=== PATIENT | female | born 2000 | race African-American/Black ===

== ENCOUNTER → 2020-12-10 | Outpatient (CLI) | payer OTHER ==
[2020-12-10 16:10] LABS: BASO % 0.4 % (0.0-1.0); EOS % 0.1 % (0.0-3.0); HEMATOCRIT 42.6 % (36.0-47.0); HEMOGLOBIN 13.3 g/dl (12.0-15.5); LYMPH # 1.3 10^3/uL (1.5-5.0); LYMPH % 17.4 % (24.0-44.0); MEAN CORPUSCULAR HEMOGLOBIN 27.4 pg (27.0-33.0); MEAN CORPUSCULAR HGB CONC 31.2 g/dl (32.0-36.5); MEAN CORPUSCULAR VOLUME 87.8 fl (80.0-96.0); MONO # 0.3 10^3/uL (0.0-0.8); MONO % 4.4 % (2.0-8.0); NEUTROPHILS # 5.8 10^3/uL (1.5-8.5); NEUTROPHILS % 77.4 % (36.0-66.0); PLATELET COUNT, AUTOMATED 349 10^3/uL (150-450); RED BLOOD COUNT 4.85 10^6/uL (4.00-5.40); WHITE BLOOD COUNT 7.5 10^3/uL (4.0-10.0)
[2020-12-10 16:44] LABS: ALBUMIN 4.3 GM/DL (3.2-5.2); ALT/SGPT 23 U/L (12-78); BILIRUBIN,TOTAL 0.5 MG/DL (0.2-1.0); BLOOD UREA NITROGEN 9 MG/DL (7-18); CALCIUM LEVEL 9.1 MG/DL (8.5-10.1); CARBON DIOXIDE LEVEL 27 MEQ/L (21-32); CHLORIDE LEVEL 105 MEQ/L (98-107); CREATININE FOR GFR 0.95 MG/DL (0.55-1.30); FREE T4 1.21 NG/DL (0.78-1.33); GLUCOSE, FASTING 85 MG/DL (70-100); POTASSIUM SERUM 4.2 MEQ/L (3.5-5.1); SODIUM LEVEL 138 MEQ/L (136-145); THYROID STIMULATING HORMONE 0.502 uIU/ML (0.463-3.98); TOTAL PROTEIN 7.6 GM/DL (6.4-8.2)
== END ==
LOC: M WUC 11:15
PROVIDERS: ATTEND Physician Assistant
DX: R42 Dizziness and giddiness (principal); R11.2 Nausea with vomiting, unspecified

== ENCOUNTER 2021-03-30 18:05 | Emergency (ER) | payer OTHER ==
[~2021-03-30] VITALS: Ht 160 cm; Wt 62.9 kg
[2021-03-30 18:05] VITALS: BP 133/72
[2021-03-30] MEDS ORDERED: VALA500T5 (18:35)
[2021-03-30] MEDS ORDERED: MUCI600T31 (18:35)
[2021-03-30] MEDS ORDERED: [UNRECOGNIZED DRUG - CODE] (18:35)
[2021-03-30] MEDS ORDERED: ACET1TAB55 (18:35)
[2021-03-30] MEDS ORDERED: [UNRECOGNIZED DRUG - CODE] (18:35)
[2021-03-30 19:27] LABS: BASO % 0.4 % (0.0-1.0); EOS # 0.2 10^3/uL (0.0-0.5); EOS % 2.4 % (0.0-3.0); HEMATOCRIT 38.3 % (36.0-47.0); LYMPH # 2.1 10^3/uL (1.5-5.0); LYMPH % 29.8 % (24.0-44.0); MEAN CORPUSCULAR HEMOGLOBIN 26.8 pg (27.0-33.0); MEAN CORPUSCULAR HGB CONC 31.3 g/dl (32.0-36.5); MEAN CORPUSCULAR VOLUME 85.5 fl (80.0-96.0); MONO # 0.5 10^3/uL (0.0-0.8); MONO % 6.9 % (2.0-8.0); NEUTROPHILS # 4.2 10^3/uL (1.5-8.5); NEUTROPHILS % 60.2 % (36.0-66.0); PLATELET COUNT, AUTOMATED 312 10^3/uL (150-450); RED BLOOD COUNT 4.48 10^6/uL (4.00-5.40)
[2021-03-30 19:39] LABS: ALBUMIN 3.3 GM/DL (3.2-5.2); ALT/SGPT 17 U/L (12-78); BILIRUBIN,DIRECT 0.1 MG/DL (0.0-0.2); BILIRUBIN,TOTAL 0.3 MG/DL (0.2-1.0); BLOOD UREA NITROGEN 13 MG/DL (7-18); CALCIUM LEVEL 8.8 MG/DL (8.5-10.1); CARBON DIOXIDE LEVEL 30 MEQ/L (21-32); CHLORIDE LEVEL 108 MEQ/L (98-107); CREATININE FOR GFR 0.81 MG/DL (0.55-1.30); GLUCOSE, FASTING 78 MG/DL (70-100); LIPASE 117 U/L (73-393); POTASSIUM SERUM 4.1 MEQ/L (3.5-5.1); SODIUM LEVEL 142 MEQ/L (136-145); TOTAL PROTEIN 6.9 GM/DL (6.4-8.2)
--- NOTE | 2021-03-30 20:15 | REP ---
INDICATION: RUQ pain. COMPARISON: None. TECHNIQUE: Right upper quadrant sonography FINDINGS: Scanning through the right upper quadrant of the abdomen demonstrates a normal sized, thin-walled gallbladder without evidence of stone or polyp. Common bile duct is normal measuring 0.6 cm in greatest diameter. No focal liver lesion is seen. Liver size is normal. No pancreatic abnormality is observed. No right renal abnormality is seen. There is no evidence of ascites. The right kidney measures 9.7 x 6.0 x 4.0 cm. IMPRESSION: Negative right upper quadrant sonography. <Electronically signed by Jeremías Baldwin > 03/30/212010
--- NOTE | 2021-03-30 20:20 | REP ---
INDICATION: R sided rib pain, worse with deep breaths. COMPARISON: No comparison chest x-ray. TECHNIQUE: Two views.. FINDINGS: The lungs are well inflated and free of infiltrate. The pleural angles are sharp. The heart size is normal. Pulmonary vasculature is not increased. No significant bony abnormality is seen. IMPRESSION: Negative chest x-ray. <Electronically signed by Jeremías Baldwin > 03/30/212015
[2021-03-30] MEDS ORDERED: KETOROLAC 30 MG/ML 1ML VIAL IV ONE (20:30)
== END 2021-03-30 21:18 | disposition home or self-care (01) ==
LOC: M ED 18:05
DX: R10.11 Right upper quadrant pain (principal); R06.02 Shortness of breath
CPT/HCPCS: 36415; 71046; 76705; 80048; 80076; 83690; 84702; 85025; 96374; 99284; J1885

== ENCOUNTER 2021-10-09 17:34 | Emergency (ER) | payer OTHER ==
[~2021-10-09] VITALS: Ht 157.5 cm; Wt 61.8 kg
[~2021-10-09 17:34] MED LIST: ACET1TAB55; MUCI600T31; VALA500T5; [UNRECOGNIZED DRUG - CODE]; [UNRECOGNIZED DRUG - CODE]
[2021-10-10 00:17] VITALS: BP 124/78
== END 2021-10-10 00:22 | disposition home or self-care (01) ==
LOC: EDBD 17:34 → M ED 17:34
DX: F43.20 Adjustment disorder, unspecified (principal); F33.9 Major depressive disorder, recurrent, unspecified

== ENCOUNTER → 2022-06-16 | Outpatient (CLI) | payer OTHER ==
[~2022-06-16] MED LIST changes: +CETI-24; +FLUTISP; +MIRT-62; +TRAM50TA2 PO; +TRAZ-252
[2022-06-16 14:23] LABS: HEMATOCRIT 39.4 % (36.0-47.0); HEMOGLOBIN 12.3 g/dl (12.0-15.5); MEAN CORPUSCULAR HEMOGLOBIN 26.2 pg (27.0-33.0); MEAN CORPUSCULAR HGB CONC 31.2 g/dl (32.0-36.5); MEAN CORPUSCULAR VOLUME 83.8 fl (80.0-96.0); PLATELET COUNT, AUTOMATED 270 10^3/uL (150-450); WHITE BLOOD COUNT 3.7 10^3/uL (4.0-10.0)
[2022-06-16 14:42] LABS: BLOOD UREA NITROGEN 9 MG/DL (9-23); CALCIUM LEVEL 8.9 MG/DL (8.5-10.1); CARBON DIOXIDE LEVEL 29 MMOL/L (20-31); CHLORIDE LEVEL 106 MMOL/L (98-107); CREATININE FOR GFR 0.83 MG/DL (0.55-1.30); GLOMERULAR FILTRATION RATE > 60.0 (>60); GLUCOSE, FASTING 102 MG/DL (60-100); SODIUM LEVEL 139 MMOL/L (136-145)
== END ==
LOC: M LAB 13:44
PROVIDERS: ATTEND Plastic Surgery Surgery of the Hand
DX: N62 Hypertrophy of breast (principal)

== ENCOUNTER 2022-06-17 10:20 | Observation (INO) | payer OTHER ==
[~2022-06-17] VITALS: Ht 157.5 cm; Wt 74.3 kg
[~2022-06-17 10:20] MED LIST changes: +LIDOCAINE 2% 100MG/5ML SDV (FOR ANES.) As Ordered ONE; +MIDAZOLAM INJ 2MG/2ML VIAL As Ordered ONE; +ROCURONIUM BROMIDE 50MG/5ML VIAL As Ordered ONE; -TRAM50TA2 PO; +ceFAZolin SOD 2 GM in IV 1 EA IV ONE; +ePHEDrine SULFATE 25 MG/5 ML(5MG/ML) SYRINGE As Ordered ONE; +fentaNYL 250 MCG/5 ML INJECTION As Ordered ONE; +propofoL 200 MG/20 ML VIAL As Ordered ONE
[2022-06-17] MEDS ORDERED: LR 1,000 ML IV SCH ×2 (10:40→15:25)
[2022-06-17] MEDS ORDERED: GENTAMICIN SULF 80MG/2ML VIAL As Ordered ONE (11:24)
[2022-06-17] MEDS ORDERED: BUPIVACAINE LIPOSOME/PF 1.3% 20ML VIAL (13.3MG/ML)(EXPAREL) As Ordered ONE (11:24)
[2022-06-17] MEDS ORDERED: BUPIVACAINE HCL 0.25% 10ML VIAL As Ordered ONE (11:24)
[2022-06-17] MEDS ORDERED: LACRILUBE (AKWA TEARS) OPHTH OINT 3.5GM As Ordered ONE (11:27)
[2022-06-17] MEDS ORDERED: ESMOLOL INJ 100MG/10ML VIAL As Ordered ONE (11:42)
[2022-06-17] MEDS ORDERED: ACETAMINOPHEN 1000MG 100ML IV BAG As Ordered ONE (11:43)
[2022-06-17] MEDS ORDERED: ROCURONIUM BROMIDE 50MG/5ML VIAL As Ordered ONE ×2 (12:20→14:52)
[2022-06-17] MEDS ORDERED: ONDANSETRON 4MG 2ML VIAL As Ordered ONE (12:26)
[2022-06-17] MEDS ORDERED: SUGAMMADEX SODIUM 500 MG/5 ML VIAL (BRIDION) As Ordered ONE (13:18)
[2022-06-17] MEDS ORDERED: KETOROLAC 60MG 2ML VIAL As Ordered ONE (13:18)
[2022-06-17] MEDS ORDERED: fentaNYL 100 MCG/2 ML INJECTION As Ordered ONE (14:02)
[2022-06-17] MEDS ORDERED: DESFLURANE 240 ML INHALANT As Ordered ONE (14:48)
[2022-06-17] MEDS ORDERED: ONDANSETRON 4MG 2ML VIAL IV PRN ×2 (15:25→15:30)
[2022-06-17] MEDS ORDERED: ACETAMINOPHEN TAB 650MG DOSE (2X325MG) PO PRN (15:30)
[2022-06-17] MEDS ORDERED: ceFAZolin SOD 2 GM in IV 1 EA IV ONE (15:30)
[2022-06-17] MEDS ORDERED: traMADol 50 MG TAB PO PRN (15:30)
[2022-06-17] MEDS: fentaNYL 100 MCG/2 ML INJECTION IV PRN ×2 (16:05→16:10)
[2022-06-17] MEDS: oxyCODONE 5MG TAB PO PRN ×2 (16:06→16:36)
[2022-06-17] MEDS: LR 1,000 ML IV SCH (16:57)
[2022-06-17 17:00] VITALS: BP 123/81
[2022-06-17 17:30] VITALS: BP 123/77
[2022-06-17 18:30] VITALS: BP 127/77
[2022-06-17 20:42] VITALS: BP 188/80
[2022-06-17] MEDS: PERCOCET 5MG/325MG TAB PO PRN (21:34)
[2022-06-17 22:17] VITALS: BP 121/80
[2022-06-17] MEDS ORDERED: diphenhydrAMINE 25MG CAP PO ONE (23:35)
[2022-06-18 01:00] VITALS: BP 134/73
[2022-06-18 05:23] VITALS: BP 130/72
[2022-06-18] MEDS: LR 1,000 ML IV SCH (05:25)
[2022-06-18] MEDS: PERCOCET 5MG/325MG TAB PO PRN (05:26)
[2022-06-18] MEDS ORDERED: TRAM50TA2 PO (09:48)
== END 2022-06-18 12:25 | disposition home or self-care (01) ==
LOC: M SDC 10:20 → M ED INP 15:30 → M MS5PR 16:45
PROVIDERS: ADMIT Plastic Surgery Surgery of the Hand; ATTEND Plastic Surgery Surgery of the Hand
DX: N62 Hypertrophy of breast (principal); N64.81 Ptosis of breast; M54.6 Pain in thoracic spine; M54.2 Cervicalgia
CPT/HCPCS: 19318; 81025; 88305; 96374; C9290; J0131; J0690; J1100; J1580; J2250; J2405; J3010; S0020

== ENCOUNTER 2022-07-20 22:46 | Emergency (ER) | payer OTHER ==
[~2022-07-20] VITALS: Ht 157.5 cm; Wt 74.2 kg
[~2022-07-20 22:46] MED LIST changes: -LIDOCAINE 2% 100MG/5ML SDV (FOR ANES.) As Ordered ONE; -MIDAZOLAM INJ 2MG/2ML VIAL As Ordered ONE; -ROCURONIUM BROMIDE 50MG/5ML VIAL As Ordered ONE; +TRAM50TA2 PO; -ceFAZolin SOD 2 GM in IV 1 EA IV ONE; -ePHEDrine SULFATE 25 MG/5 ML(5MG/ML) SYRINGE As Ordered ONE; -fentaNYL 250 MCG/5 ML INJECTION As Ordered ONE; -propofoL 200 MG/20 ML VIAL As Ordered ONE
[2022-07-20 22:47] VITALS: BP 126/79
== END 2022-07-20 23:58 | disposition left against medical advice (07) ==
LOC: M ED 22:46
DX: Z53.21 Procedure and treatment not carried out due to patient leaving prior to being seen by health care provider (principal)

== ENCOUNTER → 2023-10-11 | Outpatient (CLI) | payer OTHER ==
[~2023-10-11] MED LIST changes: -MIRT-62; +MIRT-88
== END ==
LOC: M SLEEP 20:00
PROVIDERS: ATTEND Nurse Practitioner Family
DX: G47.33 Obstructive sleep apnea (adult) (pediatric) (principal); R06.83 Snoring

== ENCOUNTER → 2024-02-02 | Outpatient (REF) | LOC: M PLAIMG 14:23 | PROVIDERS: ATTEND Family Medicine | DX: R52 Pain, unspecified (principal) ==

== ENCOUNTER 2024-04-12 22:03 | Emergency (ER) | payer OTHER ==
[~2024-04-12] VITALS: Ht 157.5 cm; Wt 87.0 kg
[2024-04-12 22:28] LABS: URINE PREG TEST NEGATIVE (NEGATIVE)
[2024-04-13] MEDS ORDERED: CEFD300C PO (00:41)
[2024-04-13] MEDS ORDERED: PYRI1TAB5 PO (00:41)
[2024-04-13 01:00] VITALS: BP 120/70; TEMP 97.6; O2SAT 99
[2024-04-13] MEDS: CEFDINIR 300 MG CAP (OMNICEF) PO ONE (01:00)
[2024-04-13] MEDS: PHENAZOPYRIDINE 100 MG TAB PO ONE (01:00)
== END 2024-04-13 01:00 | disposition home or self-care (01) ==
LOC: M ED 22:03
DX: N39.0 Urinary tract infection, site not specified (principal); Z79.2 Long term (current) use of antibiotics; Z79.899 Other long term (current) drug therapy